=== PATIENT | female | born 1985 | race Caucasian/White ===

== ENCOUNTER 2019-04-02 06:02 | Day surgery (SDC) | payer OTHER ==
[2019-04-02] MEDS ORDERED: Lactated Ringers 1,000 ML IV SCH (06:30)
[2019-04-02] MEDS ORDERED: DIPRIVAN 200 MG/20 ML IV ONE (07:30)
[2019-04-02] MEDS ORDERED: Ketamine HCl 50 MG/ML ONE (07:31)
[2019-04-02 08:56] VITALS: BP 102/56; PULSE 52; O2SAT 98
--- NOTE | 2019-04-02 09:52 | OP ---
SURGERY DATE/TIME: 04/02/2019729 PREOPERATIVE DIAGNOSIS: Persistent epigastric pain. POSTOPERATIVE DIAGNOSIS: NSAID-type gastritis. PROCEDURE: Esophagogastroduodenoscopy with biopsy. SURGEON: Dr. Tapia. ANESTHESIA: Medications were given by the anesthesia department. BRIEF HISTORY: The patient is a 33 year old white female who presents with epigastric pain. She reports that the pain was quite severe at times lasting for about five minutes. She reports however previously she had her gallbladder removed and at that time before then the pain would last for hours. The patient denies taking any medication other than prescription medication for acid reduction which has really not helped. The patient is felt the need to have endoscopic evaluation. She was appraised of the risks of the procedure including the risk of perforation, phlebitis, untoward reaction to medication, bleeding and missed lesions. The patient verbalized her understanding and desired to have the procedure performed. DESCRIPTION OF PROCEDURE: The patient was given the medications by the anesthesia department. She had continuous pulse oximetry, ECG monitoring, intermittent blood pressure monitoring and tidal CO2 monitoring during the examination. She was placed in the left lateral decubitus position. A bite block was placed and the flexible Olympus gastroscope was used to intubate the oropharynx. A view of the larynx was obtained and was normal. The scope was easily passed in the esophagus which was normal throughout its length. The stomach was entered where normal gastric rugal folds were seen. The gastric nunes suctioned dry and the stomach re-insufflated. The scope was passed along the greater curvature of the stomach to the antrum where there appeared to be areas consistent with NSAID-type gastric with punctate areas of small amounts of bleeding present. The pylorus encountered and intubated. Duodenum inspected and found to be normal. The scope is withdrawn towards the stomach. Again, a retroflex view was obtained of the lesser curvature, fundus and cardia regions of the stomach and these appeared to be normal. The scope was then redirected towards the gastric antrum and biopsies were obtained to rule out the presence of Helicobacter pylori-type organisms. The scope was then removed from the patient who tolerated the procedure well and was sent back to outpatient recovery in good condition.
== END 2019-04-02 08:53 | disposition home or self-care (01) ==
LOC: SDC 06:02
PROVIDERS: ATTEND Family Medicine
DX: K29.70 Gastritis, unspecified, without bleeding (principal); Z79.1 Long term (current) use of non-steroidal anti-inflammatories (NSAID)
CPT/HCPCS: 84703; J2704